=== PATIENT | female | born 1940 | race Caucasian/White ===

== ENCOUNTER 2022-06-12 13:28 | Outpatient (CLI) | payer MEDICARE, SELFPAY ==
--- NOTE | 2022-06-12 13:40 | CRLHL7_ITS ---
For Patients: As a result of the Century Cures Act, medical imaging exams and procedure reports are released immediately into your electronic medical record. You may view this report before your referring provider. If you have questions, please contact your health care provider. BILATERAL SCREENING MAMMOGRAM WITH COMPUTER-AIDED DETECTION AND TOMOSYNTHESIS TECHNIQUE: CC and MLO views were obtained. These mammographic images have been obtained using full-field digital technique. These mammographic images were interpreted with the benefit of computer-aided detection. Breast Tomosynthesis was used in this interpretation. COMPARISON FILM: 06/06/21, 06/05/20, 06/06/19. FINDINGS: There are scattered areas of fibroglandular density IMPRESSION: There is no radiographic evidence for malignancy. ASSESSMENT: BI-RADS Category 1: Negative RECOMMENDATION: Routine screening mammogram in 1 year. A lay language report of this examination will be provided to the patient. Андрей Thakur M.D. Diagnostic Radiologist [email or web address] JOSE/Dictated by: Андрей Thakur MD @ 06/13/2022 1:07:00 PM (Electronically Signed)
== END 2022-06-12 13:29 | disposition home or self-care (01) ==
PROVIDERS: PCP Family Medicine; Visit Provider Family Medicine
DX: Z12.31 Encounter for screening mammogram for malignant neoplasm of breast (principal)
CPT/HCPCS: 77063; 77067

== ENCOUNTER 2022-07-09 10:08 | Outpatient (CLI) | payer MEDICARE, SELFPAY ==
[2022-07-09 10:22] LABS: Albumin* 3.9 g/dL (3.3-5.0); Chloride* 104 mmol/L (96-114)
[2022-07-09 10:23] LABS: Potassium* 4.6 mmol/L (3.6-5.1); Sodium* 139 mmol/L (135-149)
[2022-07-09 10:25] LABS: Aspartate Amino Transferase* 23 U/L (12-35); Bilirubin Total* 0.5 mg/dL (0.1-1.5); Blood Urea Nitrogen* 16 mg/dL (7-30); Carbon Dioxide* 28 mmol/L (20-32); Cholesterol* 203 mg/dL (90-199); Creatinine* 0.7 mg/dL (0.5-1.5); Estimated Glomerular Filt Rate 87 ml/min; Glucose* 98 mg/dL (60-115); Total Protein* 6.5 g/dL (6.0-8.3)
[2022-07-09 10:26] LABS: Alanine Aminotransferase* 12 U/L (4-35); Alkaline Phosphatase* 88 U/L (40-150); Calcium* 8.9 mg/dL (8.4-10.6); HDL Cholesterol* 57 mg/dL (>=50); LDL Cholesterol Calculated 127 mg/dL (<100); Triglycerides* 96 mg/dL (40-149)
[2022-07-11 13:49] LABS: Vitamin D 25 Hydroxy* 45 ng/mL (30-80)
== END 2022-07-09 10:09 | disposition home or self-care (01) ==
PROVIDERS: PCP Family Medicine; Visit Provider Family Medicine
DX: Z00.00 Encounter for general adult medical examination without abnormal findings (principal); I10 Essential (primary) hypertension; E78.5 Hyperlipidemia, unspecified; E66.01 Morbid (severe) obesity due to excess calories
CPT/HCPCS: 80053; 80061; 82306

== ENCOUNTER 2022-07-30 12:46 | Outpatient (CLI) | payer MEDICARE, SELFPAY ==
--- NOTE | 2022-07-30 13:00 | CRLHL7_ITS ---
For Patients: As a result of the Century Cures Act, medical imaging exams and procedure reports are released immediately into your electronic medical record. You may view this report before your referring provider. If you have questions, please contact your health care provider. DXA BONE MINERAL DENSITY STUDY Current height (in): 63.0. Weight (lb): 208.0. Menopause age: 59. Ethnicity: White. Reason for exam: Asymptomatic, age. 1. Have you had a previous hip or vertebral fracture? No. 2. Have you had any fractures during your adult life which did not result from significant trauma (e.g., auto accident)? No. 3. Did either of your parents have a hip fracture? No. 4. Do you smoke? No. 5. Have you ever taken Glucocorticoids? No. 6. Do you have rheumatoid arthritis? No. 7. Do you have secondary osteoporosis? No. 8. Do you drink 3 or more alcoholic drinks per day? No. 9. Are you being treated for osteoporosis? No. 10. Have you ever taken any of the following medications: Actonel, Evista, Fosamax, Miacalcin, Reclast, Boniva, Forteo, HRT (i.e. estrogen/hormone therapy), Protelos, Prolia, Vitamin D, Calcium, other ??? please specify. ANSWER: Yes, vitamin D. 11. Do you have any of the following medical conditions: Anorexia or bulimia, asthma or emphysema, end stage renal disease, hyperparathyroidism, any seizure disorders, cancer, inflammatory bowel diseases, hysterectomy, other ??? please specify. ANSWER: Yes, hysterectomy. 12. What was your maximum height (inches)? 63. 13. Do you perform weight bearing exercise regularly? No. 14. Do you regularly consume dairy products? Yes. 15. Do you drink caffeinated beverages? Yes. If female: 16. At what age did your period start? 14. 17. Are you premenopausal? No. 18. How many full term pregnancies have you had? 2. 19. Have you ever missed your period for more than 6 months in a row (not including or menopause)? No. TECHNIQUE: Bone mineral density study was performed using the [facility]. FINDINGS: The results of the study expressed as bone mineral density (BMD) are as follows: Lumbar spine L1 to L4: BMD: 1.319 g/cm2. T-score: 2.5. Z-score: 5.2. Neck Left: BMD: 0.862 g/cm2. T-score: 0.1. Z-score: 2.5. Right: BMD: 0.894 g/cm2. T-score: 0.4. Z-score: 2.8. Total Left: BMD: 1.051 g/cm2. T-score: 0.9. Z-score: 3.0. Right: BMD: 0.992 g/cm2. T-score: 0.4. Z-score: 2.5. IMPRESSION: Normal bone density. Андрей Thakur M.D. Diagnostic Radiologist [email or web address] Transcribed: 10:00 a.m. DW/Dictated by: Андрей Thakur MD @ 07/31/2022 8:30:00 AM (Electronically Signed)
== END 2022-07-30 12:47 | disposition home or self-care (01) ==
LOC: RAD 12:47
PROVIDERS: PCP Family Medicine; Visit Provider Family Medicine
DX: Z78.0 Asymptomatic menopausal state (principal)
CPT/HCPCS: 77080

== ENCOUNTER 2023-06-15 21:52 | Outpatient (CLI) | payer MEDICARE, SELFPAY ==
--- NOTE | 2023-06-15 13:00 | CRLHL7_ITS ---
For Patients: As a result of the Century Cures Act, medical imaging exams and procedure reports are released immediately into your electronic medical record. You may view this report before your referring provider. If you have questions, please contact your health care provider. BILATERAL SCREENING MAMMOGRAM WITH COMPUTER-AIDED DETECTION AND TOMOSYNTHESIS TECHNIQUE: CC and MLO views were obtained. These mammographic images have been obtained using full-field digital technique. These mammographic images were interpreted with the benefit of computer-aided detection. Breast Tomosynthesis was used in this interpretation. COMPARISON FILM: 06/12/22, 06/06/21, 06/05/20. FINDINGS: There are scattered areas of fibroglandular density IMPRESSION: There is no radiographic evidence for malignancy. ASSESSMENT: BI-RADS Category 1: Negative RECOMMENDATION: Routine screening mammogram in 1 year. A lay language report of this examination will be provided to the patient. Андрей Thakur M.D. Diagnostic Radiologist [email or web address] Transcribed: 2:36 pm DW/Dictated by: Андрей Thakur MD @ 06/16/2023 12:49:00 PM (Electronically Signed)
== END 2023-06-15 21:53 | disposition home or self-care (01) ==
LOC: MAMMO 21:54
PROVIDERS: PCP Family Medicine; Visit Provider Family Medicine
DX: Z12.31 Encounter for screening mammogram for malignant neoplasm of breast (principal)
CPT/HCPCS: 77063; 77067

== ENCOUNTER 2023-10-02 08:25 | Outpatient (CLI) | payer MEDICARE, SELFPAY | END 2023-10-02 08:26 | disposition home or self-care (01) | LOC: NFLDREF 14:20 | PROVIDERS: PCP Family Medicine; Referring Provider Family Medicine; Visit Provider Family Medicine | DX: I10 Essential (primary) hypertension (principal); E78.5 Hyperlipidemia, unspecified | CPT/HCPCS: 80053; 80061 ==

== ENCOUNTER 2023-12-26 16:43 | Emergency (ER) | payer MEDICARE, SELFPAY ==
[2023-12-26 16:52] VITALS: BP 184/95; PULSE 93; RESP 16; TEMP 37; O2SAT 93; BMI 39.0
--- NOTE | 2023-12-26 17:14 | ED_ITS ---
HPI - General Adult General Chief complaint: Anxiety Stated complaint: Anxiety attack Time Seen by Provider: 12/26/23 16:57 History of Present Illness HPI narrative: Patient was seen at doctor yesterday. Has been feeling more depressed and was started on antidepressant yesterday. She reports she did not sleep last night at all and feels like she will jump out of her skin . Has been taking her BP continuously and daughter reports she is just fixates on certain things . Does show old bottle of Xanax from 2019 and has taken this this week including one this AM. 83-year-old woman presenting to the emergency department with concern of high blood pressure and anxiety. Was seen by primary care provider in a restarted on Lexapro yesterday. Has been at home feeling like she needs to ?jump out of her skin?. Has been tearful. Has had loss of friend group as she is the youngest and they have over the recent years. Used to play bridge with them regularly. Last year also lost her dog; she has always had a dog. Took Lexapro before bed last night and could not sleep all night. Has been checking blood pressures regularly which have been elevated. Had a bottle of Xanax she says from 2018 and has been taking this intermittently over this last week admittedly it has been helpful. Was on Lexapro in the past and it sounds like it may have been helpful. Does not like to take medication is considered as failure. Takes amlodipine 5 mg daily. Daughter's been encouraging her to participate in activities perhaps at the senior center which brought her has been dismissing. Also may be volunteering at dog care facility/[place] [facility]. Encouraged to spend more time outside. Related Data Home Medications Medication Instructions Recorded Confirmed acetaminophen 325 mg tablet 325 mg PO .Bedtime as needed PRN 07/10/22 12/25/23 cholecalciferol (vitamin D3) 50 2,000 unit PO DAILY 07/10/22 12/25/23 mcg (2,000 unit) capsule glucosamine sulfate 500 mg capsule 500 mg PO BID 07/10/22 12/25/23 zyyvhfrl-tespqd-zjakf extract 5 1 cap PO QDAY 07/10/22 12/25/23 mg-6 mg-150 mg capsule (Fruit and Vegetable Daily) multivitamin (Multiple Vitamins 1 tab PO QAM 07/10/22 12/25/23 tablet) zinc sulfate 50 mg zinc (220 mg) 50 mg PO DAILY 07/10/22 12/25/23 capsule melatonin 10 mg capsule 3 mg PO .Bedtime PRN 07/11/22 12/25/23 Previous Rx's Medication Instructions Recorded amlodipine 5 mg tablet 5 mg PO DAILY #90 tabs 10/06/23 escitalopram oxalate 5 mg tablet 5 mg PO QDAY #90 tabs 12/25/23 (Lexapro) Allergies Allergy/AdvReac Type Severity Reaction Status Date / Time codeine AdvReac Intermediate Vomiting Verified 12/25/23 08:26 propoxyphene AdvReac Intermediate Vomiting Verified 12/25/23 08:26 hydrocodone AdvReac Mild Vomiting Verified 12/25/23 08:26 meperidine AdvReac Mild Vomiting Verified 12/25/23 08:26 tramadol AdvReac Unknown Vomiting Verified 12/25/23 08:26 Review of Systems Status of ROS: Reports: 6 or more systems reviewed and unremarkable except as noted in History and below [facility] Medical History Palpitations ?R00.2 - Palpitations (ICD-10) History of bone density study ?Z92.89 - Personal history of other medical treatment (ICD-10) Tinnitus of both ears ?H93.13 - Tinnitus, bilateral (ICD-10) Premature atrial contraction (03/2021) ?I49.1 - Atrial premature depolarization (ICD-10) Osteoarthritis of left shoulder ?M19.012 - Primary osteoarthritis, left shoulder (ICD-10) Morbid obesity with body mass index (BMI) of 40.0 or higher ?E66.01 - Morbid (severe) obesity due to excess calories (ICD-10) Hypokalemia (03/2019) ?E87.6 - Hypokalemia (ICD-10) Hypertension (02/2019) ?I10 - Essential (primary) hypertension (ICD-10) Dyslipidemia (11/2020) ?E78.5 - Hyperlipidemia, unspecified (ICD-10) Anxiety about health (04/2020) ?F41.8 - Other specified anxiety disorders (ICD-10) Surgical History Os peroneum syndrome of left foot (2010) ?M77.52 - Other enthesopathy of left foot and ankle (ICD-10) History of total knee replacement (2016) ?Z96.659 - Presence of unspecified artificial knee joint (ICD-10) History of hysterectomy (1993) ?Z90.710 - Acquired absence of both cervix and uterus (ICD-10) History of bilateral cataract extraction (2016) ?Z98.41 - Cataract extraction status, right eye (ICD-10) ?Z98.42 - Cataract extraction status, left eye (ICD-10) Fracture of right wrist (2004) ?S62.101A - Fracture of unspecified carpal bone, right wrist, initial encounter for closed fracture (ICD-10) Family History Father Diabetes Stroke, Onset Age: 80 Mother Cardiac valvular malformation Maternal Grandmother Multiple myeloma Other Nonmelanoma skin cancer Social History Narrative: , retired teacher, 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 Moose does not have a regular exercise regimen, social drinker few times a week fabby for insomnia non smoker, What is your current living situation?: I presently have a place to live Problems where you live: no known problems In the past 12 months, utilities in danger of being shut off: no In past 12 months, lack of transportation kept you from medical appts, meetings, work, or getting things needed for daily living: no In the past 12 mos, have been you worried that your food would run out before you had money to buy more?: never true In the past 12 mos, the food you bought just didn't last and you didn't have money to buy more?: never true Smoking Status: Never smoker How often does anyone, including family, friends and others, physically hurt you : never How often does anyone, including family, friends and others, insult or talk down to you: never How often does anyone, including family, friends and others, threaten you with harm: never How often does anyone, including family, friends and others, scream or curse at you: never Little interest or pleasure in doing things: several days Feeling down, depressed, or hopeless: several days Exam Narrative: Exam Narrative: Pleasant. Is little tremulous and wiggling her legs also when I enter the room. Breathing easily. Heart in regular rate and rhythm at time of my auscultation. Lungs are clear. No indications self-harm on her person. She is well- perfused. There is no lower extremity edema. Speaks in a very quiet voice. Looks over often to daughter for input. Const: Vital Signs, click to edit/add: Vital Signs - 24 hr 12/26/23 16:52 Temperature 98.6 F Pulse Rate [Pulse Oximeter] 93 Respiratory Rate 16 Blood Pressure [Ri ght Upper Arm] 184/95 H Pulse Oximetry 93 Oxygen Delivery Me thod Room Air Documenting provider has reviewed patient's vital signs: yes Course Vital Signs Vital signs: Initial Vital Signs Temperature 98.6 F 12/26/23 16:52 Temperature Source Temporal Artery Scan 12/26/23 16:52 Pulse Rate 93 12/26/23 16:52 Respiratory Rate 16 12/26/23 16:52 Blood Pressure 184/95 H 12/26/23 16:52 Blood Pressure Mean 124 H 12/26/23 16:52 Pulse Oximetry 93 12/26/23 16:52 Oxygen Delivery Method Room Air 12/26/23 16:52 Vital Signs Temperature 98.6 F 12/26/23 16:52 Pulse Rate 93 12/26/23 16:52 Respiratory Rate 16 12/26/23 16:52 Blood Pressure 184/95 H 12/26/23 16:52 Pulse Oximetry 93 12/26/23 16:52 Oxygen Delivery Method Room Air 12/26/23 16:52 Temperature 98.6 F 12/26/23 16:52 Pulse Rate 93 12/26/23 16:52 Respiratory Rate 16 12/26/23 16:52 Blood Pressure 184/95 H 12/26/23 16:52 Pulse Oximetry 93 12/26/23 16:52 Oxygen Delivery Method Room Air 12/26/23 16:52 Medical Decision Making MDM Narrative Medical decision making narrative: Making a good case for anxiety. Does not appear to have singular other complaints other than elevated blood pressure. I think stress/anxiety is better explanation for this as well. Discussed concerns/risks of benzodiazepine use. See patient discharge plan for further discussion. Medical Records Medical records reviewed: Yes I reviewed the patient's medical records Discharge Plan Discharge Clinical Impression: Other social stressor, Anxiety Patient Disposition: Home w/ Parent or Adult Condition: Stable Instructions: Anxiety (ED) Additional Instructions: I think is up to you how or when you want to dose your Lexapro. Try to stay active. Beautiful days outside. Do get some time outside. Try to get quality and regular sleep. Stay well-hydrated. I think volunteering and trying to establish some regular fun activities yes, it may be with new people, would be a good idea. I do think it would be a good idea for you to talk regularly with a professional therapist. Be careful with Xanax or lorazepam as they can be sedating. Prescribing lorazepam from [facility]. Can use this as Lexapro builds up in your system. As far as gummies are concerned, I leave that up to you and your daughter. It can be quite helpful for some people and can be a safer option. I also wonder whether checking her blood pressure is a good idea? I think that it will likely precipitate or exacerbate your anxiety which will raise your blood pressure etc. etc.. Prescriptions: No Action escitalopram oxalate [Lexapro] 5 mg tablet 5 mg PO QDAY Qty: 90 0RF cholecalciferol (vitamin D3) 50 mcg (2,000 unit) capsule 2,000 unit PO DAILY zinc sulfate 50 mg zinc (220 mg) capsule 50 mg PO DAILY glucosamine sulfate 500 mg capsule 500 mg PO BID acetaminophen 325 mg tablet 325 mg PO .Bedtime as needed PRN Rx Instructions: NO MORE THAN 4000 MG/DAY Fruit and Vegetable Daily 5-6-150 mg capsule 1 cap PO QDAY multivitamin [Multiple Vitamins] Tablet 1 tab PO QAM melatonin 10 mg capsule 3 mg PO .Bedtime PRN amlodipine 5 mg tablet 5 mg PO DAILY Qty: 90 3RF Follow Up/Referrals: Kady Byrd MD [Primary Care Provider] - Stand Alone Forms: angelMD Info Instructions
== END 2023-12-26 18:16 | disposition home or self-care (01) ==
PROVIDERS: Emergency Provider Family Medicine; PCP Family Medicine
DX: F41.9 Anxiety disorder, unspecified (principal); F43.9 Reaction to severe stress, unspecified
CPT/HCPCS: 99283; 99284

== ENCOUNTER 2024-02-25 15:54 | Outpatient (CLI) | payer MEDICARE, SELFPAY | END 2024-02-25 15:55 | disposition home or self-care (01) | PROVIDERS: PCP Family Medicine; Visit Provider Nurse Practitioner Family | DX: F41.9 Anxiety disorder, unspecified (principal) | CPT/HCPCS: 82306; 82607; 82728; 83735; 84207; 84443 ==

== ENCOUNTER 2024-02-26 09:21 | Outpatient (CLI) | payer MEDICARE, SELFPAY | END 2024-02-26 09:22 | disposition home or self-care (01) | LOC: NFLDREF 02-29 17:48 | PROVIDERS: PCP Family Medicine; Referring Provider Family Medicine; Visit Provider Nurse Practitioner Family | DX: R35.0 Frequency of micturition (principal) | CPT/HCPCS: 87086 ==

== ENCOUNTER 2024-03-02 19:25 | Outpatient (CLI) | payer MEDICARE, SELFPAY ==
--- NOTE | 2024-04-05 08:40 | W.PM.SLEEP ---
Sleep Study Details Details Interpreting Provider: Norberto Date of Sleep Study: 03/02/24 Sleep Study Details: STUDY TYPE:? Home unattended ? BMI:? 38.7 ORDERING PROVIDER:? Norberto INDICATION:? Concerned about sleep apnea ? SLEEP SUMMARY:? 388 minutes monitored RESPIRATORY SUMMARY:? AHI 8.8 per CMS guidelines., supine and right lateral AHI approximately 17, left lateral AHI 11.2 PERIODIC LIMB MOVEMENTS OF SLEEP:? Not recorded CARDIAC:? 48-117, mean 58.1 IMPRESSION:? Mild obstructive sleep apnea RECOMMENDATION: If patient is symptomatic treatment options include CPAP and dental appliance. Weight loss is recommended
== END 2024-03-02 19:26 | disposition home or self-care (01) ==
LOC: SLEEP 19:29
PROVIDERS: PCP Family Medicine; Visit Provider Otolaryngology
DX: G47.33 Obstructive sleep apnea (adult) (pediatric) (principal)
CPT/HCPCS: 95806

== ENCOUNTER 2024-10-04 09:30 | Outpatient (CLI) | payer MEDICARE, SELFPAY | END 2024-10-04 09:31 | disposition home or self-care (01) | LOC: NFLDREF 10-05 00:29 | PROVIDERS: PCP Family Medicine; Referring Provider Family Medicine; Visit Provider Family Medicine | DX: E78.5 Hyperlipidemia, unspecified (principal); I10 Essential (primary) hypertension; M81.0 Age-related osteoporosis without current pathological fracture | CPT/HCPCS: 80053; 80061; 82306 ==

== ENCOUNTER 2025-01-02 13:22 | Outpatient (CLI) | payer MEDICARE, SELFPAY ==
--- NOTE | 2025-01-02 13:40 | CRLHL7_ITS ---
For Patients: As a result of the Cures Act, medical imaging exams and procedure reports are released immediately into your electronic medical record. You may view this report before your referring provider. If you have questions, please contact your health care provider. BILATERAL SCREENING MAMMOGRAM WITH COMPUTER-AIDED DETECTION AND TOMOSYNTHESIS TECHNIQUE: CC and MLO views were obtained. These mammographic images have been obtained using full-field digital technique. These mammographic images were interpreted with the benefit of computer-aided detection. Breast Tomosynthesis was used in this interpretation. COMPARISON FILM: 06/15/23, 06/12/22, 06/06/21. FINDINGS: There are scattered areas of fibroglandular density IMPRESSION: There is no radiographic evidence for malignancy. ASSESSMENT: BI-RADS Category 1: Negative RECOMMENDATION: Routine screening mammogram in 1 year. A lay language report of this examination will be provided to the patient. Андрей Thakur M.D. Diagnostic Radiologist [email or web address] Transcribed: 3:19 p.mathew maldonado/Dictated by: Андрей Thakur MD @ 01/03/2025 8:49:00 AM (Electronically Signed)
== END 2025-01-02 13:23 | disposition home or self-care (01) ==
LOC: MAMMO 13:22
PROVIDERS: PCP Family Medicine; Visit Provider Family Medicine
DX: Z12.31 Encounter for screening mammogram for malignant neoplasm of breast (principal)
CPT/HCPCS: 77063; 77067

== ENCOUNTER 2025-01-11 14:56 | Outpatient (CLI) | payer MEDICARE, SELFPAY | END 2025-01-11 14:57 | disposition home or self-care (01) | PROVIDERS: PCP Family Medicine; Visit Provider Family Medicine | DX: R19.7 Diarrhea, unspecified (principal) | CPT/HCPCS: 80053 ==

== ENCOUNTER 2025-02-09 07:20 | Outpatient (CLI) | payer MEDICARE, SELFPAY | END 2025-02-09 07:21 | disposition home or self-care (01) | LOC: NFLDREF 02-12 08:14 | PROVIDERS: PCP Family Medicine; Referring Provider Family Medicine; Visit Provider Family Medicine | DX: R19.7 Diarrhea, unspecified (principal); R19.4 Change in bowel habit | CPT/HCPCS: 87045; 87046; 87177; 87209; 87427; 87493; 87505 ==

== ENCOUNTER 2025-03-06 09:46 | Outpatient (CLI) | payer MEDICARE, SELFPAY ==
--- NOTE | 2025-03-06 11:42 | P.ANES_ITS ---
Anesthesia Charges Start Date/Time Anesthesia Start Date: 03/06/25 Anesthesia Start Time: 11:02 Stop Date/Time Anesthesia Stop Date: 03/06/25 Anesthesia Stop Time: 11:38 Summary Extremes of Age - Over 70 or under 1: VICE PRESIDENT QUALITY ASSURANCE Coding CPT Codes CPT Codes: VANESSA LWR INTST NDSC NOS - 56083 ([id number]) P2 - PATIENT W/MILD SYST DISEASE, QK - PHYSICIAN RELATIONS MANAGER 2-4 CNCRNT ANEDrake PROC, QX - VICE PRESIDENT QUALITY ASSURANCE SVC W/ MD MED DIRECTION Additional Codes: Summary - Extremes of Age - Over 70 or under 1: VICE PRESIDENT QUALITY ASSURANCE ([id number])
--- NOTE | 2025-03-06 11:42 | W.ANESCHARGE ---
Anesthesia Charges Start Date/Time Anesthesia Start Date: 03/06/25 Anesthesia Start Time: 11:02 Stop Date/Time Anesthesia Stop Date: 03/06/25 Anesthesia Stop Time: 11:38 Summary Extremes of Age - Over 70 or under 1: BILLET HEADER Coding CPT Codes CPT Codes: VANESSA LWR INTST NDSC NOS - 23754 ([id number]) P2 - PATIENT W/MILD SYST DISEASE, QK - BASTING MARKER 2-4 CNCRNT ANEDrake PROC, QX - BILLET HEADER SVC W/ MD MED DIRECTION Additional Codes: Summary - Extremes of Age - Over 70 or under 1: BILLET HEADER ([id number])
--- NOTE | 2025-03-06 12:31 | P.ANES_ITS ---
Anesthesia Charges Start Date/Time Anesthesia Start Date: 03/06/25 Anesthesia Start Time: 11:02 Stop Date/Time Anesthesia Stop Date: 03/06/25 Anesthesia Stop Time: 11:38 Summary Extremes of Age - Over 70 or under 1: MDA Coding CPT Codes CPT Codes: ANES LWR INTST NDSC NOS - 16358 ([id number]) P2 - PATIENT W/MILD SYST DISEASE, QK - AFTER SCHOOL PROGRAM TEACHER 2-4 CNCRNT ANES PROC, QX - ENVELOPE ADJUSTER SVC W/ MD MED DIRECTION Additional Codes: Summary - Extremes of Age - Over 70 or under 1: MDA ([id number])
--- NOTE | 2025-03-06 12:31 | W.ANESCHARGE ---
Anesthesia Charges Start Date/Time Anesthesia Start Date: 03/06/25 Anesthesia Start Time: 11:02 Stop Date/Time Anesthesia Stop Date: 03/06/25 Anesthesia Stop Time: 11:38 Summary Extremes of Age - Over 70 or under 1: MDA Coding CPT Codes CPT Codes: ANES LWR INTST NDSC NOS - 50120 ([id number]) P2 - PATIENT W/MILD SYST DISEASE, QK - COMPUTER OPERATOR 2-4 CNCRNT ANES PROC, QX - DRAWING HAND SVC W/ MD MED DIRECTION Additional Codes: Summary - Extremes of Age - Over 70 or under 1: MDA ([id number])
== END 2025-03-06 09:47 | disposition home or self-care (01) ==
LOC: OP CLINIC 09:48
PROVIDERS: PCP Family Medicine; Visit Provider Surgery
DX: R19.7 Diarrhea, unspecified (principal); R19.4 Change in bowel habit; D12.3 Benign neoplasm of transverse colon; K57.30 Diverticulosis of large intestine without perforation or abscess without bleeding; K64.8 Other hemorrhoids
CPT/HCPCS: 00811; 45380; 45385; 88305; 99100; J2704

== ENCOUNTER 2025-09-26 06:17 | Outpatient (CLI) | payer MEDICARE, SELFPAY ==
--- NOTE | 2025-09-26 07:58 | P.ANES_ITS ---
Anesthesia Charges Start Date/Time Anesthesia Start Date: 09/26/25 Anesthesia Start Time: 07:19 Stop Date/Time Anesthesia Stop Date: 09/26/25 Anesthesia Stop Time: 07:56 Coding CPT Codes CPT Codes: VANESSA LWR INTST NDSC NOS - 74914 ([id number]) P2 - PATIENT W/MILD SYST DISEASE, QK - BATH ATTENDANT 2-4 CNCRNT ANES PROC, QX - DISH NETWORK INSTALLER SVC W/ MD MED DIRECTION
--- NOTE | 2025-09-26 07:58 | W.ANESCHARGE ---
Anesthesia Charges Start Date/Time Anesthesia Start Date: 09/26/25 Anesthesia Start Time: 07:19 Stop Date/Time Anesthesia Stop Date: 09/26/25 Anesthesia Stop Time: 07:56 Coding CPT Codes CPT Codes: VANESSA LWR INTST NDSC NOS - 98167 ([id number]) P2 - PATIENT W/MILD SYST DISEASE, QK - INSIDE SALES LEAD 2-4 CNCRNT ANES PROC, QX - PLATE DRILLER SVC W/ MD MED DIRECTION
--- NOTE | 2025-09-26 08:58 | P.ANES_ITS ---
Anesthesia Charges Start Date/Time Anesthesia Start Date: 09/26/25 Anesthesia Start Time: 07:19 Stop Date/Time Anesthesia Stop Date: 09/26/25 Anesthesia Stop Time: 07:56 Coding CPT Codes CPT Codes: VANESSA LWR INTST NDSC NOS - 41253 ([id number]) P2 - PATIENT W/MILD SYST DISEASE, QK - MEDICAL SALES 2-4 CNCRNT ANES PROC, QX - INSPECTOR TYPE SVC W/ MD MED DIRECTION
--- NOTE | 2025-09-26 08:58 | W.ANESCHARGE ---
Anesthesia Charges Start Date/Time Anesthesia Start Date: 09/26/25 Anesthesia Start Time: 07:19 Stop Date/Time Anesthesia Stop Date: 09/26/25 Anesthesia Stop Time: 07:56 Coding CPT Codes CPT Codes: VANESSA LWR INTST NDSC NOS - 44016 ([id number]) P2 - PATIENT W/MILD SYST DISEASE, QK - SILVERWARE CLEANER 2-4 CNCRNT ANES PROC, QX - BARREL HANDLER SVC W/ MD MED DIRECTION
--- NOTE | 2025-09-26 08:59 | W.ANESCHARGE ---
Anesthesia Charges Start Date/Time Anesthesia Start Date: 09/26/25 Anesthesia Start Time: 07:19 Stop Date/Time Anesthesia Stop Date: 09/26/25 Anesthesia Stop Time: 07:56 Summary Extremes of Age - Over 70 or under 1: MDA Coding CPT Codes CPT Codes: ANES LWR INTST NDSC NOS - 51101 ([id number]) QK - ENVIRONMENTAL HEALTH SANITARIAN 2-4 CNCRNT ANES PROC, QX - CULVERT INSTALLER SVC W/ MD MED DIRECTION, P2 - PATIENT W/MILD SYST DISEASE Additional Codes: Summary - Extremes of Age - Over 70 or under 1: DANIEL ([id number])
== END 2025-09-26 06:18 | disposition home or self-care (01) ==
LOC: OP CLINIC 06:17
PROVIDERS: PCP Family Medicine; Visit Provider Surgery
DX: D12.2 Benign neoplasm of ascending colon (principal); D12.3 Benign neoplasm of transverse colon; D12.5 Benign neoplasm of sigmoid colon; K64.8 Other hemorrhoids; K57.30 Diverticulosis of large intestine without perforation or abscess without bleeding; Z86.0101 Personal history of adenomatous and serrated colon polyps
CPT/HCPCS: 00811; 45385; 99100; J2704

== ENCOUNTER 2025-10-03 08:23 | Outpatient (CLI) | payer MEDICARE, SELFPAY | END 2025-10-03 08:24 | disposition home or self-care (01) | LOC: NFLDREF 10-05 13:47 | PROVIDERS: PCP Family Medicine; Referring Provider Family Medicine; Visit Provider Family Medicine | DX: E78.5 Hyperlipidemia, unspecified (principal); E55.9 Vitamin D deficiency, unspecified; I10 Essential (primary) hypertension | CPT/HCPCS: 80053; 80061; 82306 ==